=== PATIENT | female | born 1990 | race American Indian/Alaskan Native ===

== ENCOUNTER 2018-11-29 14:20 | Emergency (ER) | payer MEDICAID ==
[2018-11-29 14:33] VITALS: RESP 18; TEMP 98.7
[2018-11-29] MEDS ORDERED: Sodium Chloride 0.9% 1,000 ML IV STA (14:57)
[2018-11-29 15:33] LABS: URINE BILIRUBIN NEGATIVE (NEGATIVE); URINE BLOOD TRACE-INTACT (NEGATIVE); URINE GLUCOSE (UA) NEGATIVE (NEGATIVE); URINE LEUKOCYTE ESTERASE NEGATIVE Leu/uL (NEGATIVE); URINE PROTEIN NEGATIVE mg/dL (<30 mg/dL); URINE UROBILINOGEN 0.2 E.U./dL (<1 E.U./dL)
[2018-11-29 15:34] LABS: URINE APPEARANCE CLEAR (CLEAR); URINE COLOR YELLOW (YELLOW)
[2018-11-29 15:53] LABS: ALB/GLOB RATIO 1.3 (1.1-1.8); ALBUMIN 4.6 g/dL (3.0-4.8); ALT/SGPT 25 U/L (7-56); AMYLASE 108 U/L (35-125); AST/SGOT 27 U/L (14-36); BLOOD UREA NITROGEN 12 mg/dL (7-21); CALCIUM 9.5 mg/dL (8.4-10.5); GFR NON-AFRICAN AMERICAN > 60; LIPASE 178 U/L (23-300)
[2018-11-29 15:54] LABS: INR 1.09; PARTIAL THROMBOPLASTIN TIME 30.2 Seconds (25.1-36.5); PROTHROMBIN TIME 12.4 SECONDS (9.4-12.5)
[2018-11-29] MEDS ORDERED: Potassium Chloride 20 mEq ER Tab PO STA (15:57)
[2018-11-29 16:00] LABS: BASO # 0.03 K/mm3 (0.0-2.0); BASO % 0.4 % (0.0-3.0); EOS # 0.1 (0.0-0.7); EOS % 1.5 % (1.5-5.0); GRAN # 3.95 (1.4-6.5); GRAN % 58.7 % (50.0-68.0); LYMPH # 2.4 (1.2-3.4); LYMPH % 35.2 % (22.0-35.0); MEAN CELL VOLUME 76.4 fl (80.0-105.0); MEAN CORPUSCULAR HEMOGLOBIN 25.1 pg (25.0-35.0); MEAN CORPUSCULAR HGB CONC 32.8 g/dl (31.0-37.0); MEAN PLATELET VOLUME 9.6 fl (7.0-11.0); MONO # 0.3 (0.1-0.6); MONO % 4.2 % (1.0-6.0); RBC 5.18 10^6/uL (3.5-6.1); RED CELL DISTRIBUTION WIDTH 14.2 % (11.5-14.5); WHITE BLOOD COUNT 6.7 10^3/uL (4.5-11.0)
[2018-11-29] MEDS ORDERED: Iohexol 350 MG/100 ML VIAL ONE (16:06)
[2018-11-29 16:07] LABS: URINE BACTERIA SMALL /hpf; URINE RBC 0 - 2 /hpf (0-2)
--- NOTE | 2018-11-29 16:38 | CT ---
Date of service: 11/29/2018 PROCEDURE: CT Abdomen and Pelvis with contrast HISTORY: RLQ pain COMPARISON: None. TECHNIQUE: Contrast dose: 100 mL Omnipaque 350 Radiation dose: Total exam DLP = 403.59 mGy-cm. This CT exam was performed using one or more of the following dose reduction techniques: Automated exposure control, adjustment of the mA and/or kV according to patient size, and/or use of iterative reconstruction technique. FINDINGS: LOWER THORAX: Unremarkable. LIVER: Unremarkable. No gross lesion or ductal dilatation. GALLBLADDER AND BILE DUCTS: Unremarkable. PANCREAS: Unremarkable. No gross lesion or ductal dilatation. SPLEEN: Unremarkable. ADRENALS: Unremarkable. No mass. KIDNEYS AND URETERS: Unremarkable. No hydronephrosis. No solid mass. VASCULATURE: Unremarkable. No aortic aneurysm. No aortic atherosclerotic calcification or mural plaque present. BOWEL: Unremarkable. No obstruction. No gross mural thickening. APPENDIX: Normal appendix. PERITONEUM: Unremarkable. No free fluid. No free air. LYMPH NODES: Unremarkable. No enlarged lymph nodes. BLADDER: Unremarkable. REPRODUCTIVE: Slightly increased prominence of the right adnexa relative to the left BONES: No acute fracture. OTHER FINDINGS: None. IMPRESSION: No evidence of appendicitis. Slightly increased prominence of the right adnexa relative to the left. Given right lower quadrant pain, pelvic ultrasound can be considered to evaluate for ovarian torsion as clinically needed.
--- NOTE | 2018-11-29 17:58 | ED PDOC ---
Arrival/HPI - General Chief Complaint: GI Problem Time Seen by Provider: 11/29/18 14:35 Historian: Patient - History of Present Illness Narrative History of Present Illness (Text): 11/30/18 00:19 28 year old female with no significant past medical history presents to the emergency department complaining of right sided flank pain x one day. Patient describes gradually worsening intermittent sharp right lower quadrant pain that radiates around the right flank to the back. Tolerating PO and having BM per baseline. States she typically has pain like this with her UTIs. Unknown LMP, patient on DepoProvera shot. Denies fever, chills, urinary symptoms, stool changes, N/V, vaginal bleeding, vaginal discharge, pelvic pain, rash, or any other associated symptoms. Past Medical History - Provider Review Nursing Documentation Reviewed: Yes - Infectious Disease Hx of Infectious Diseases: None - Psychiatric Hx Substance Use: No - Anesthesia Hx Anesthesia: No - Suicidal Assessment Feels Threatened In Home Enviroment: No Family/Social History - Physician Review Nursing Documentation Reviewed: Yes Family/Social History: No Known Family HX Smoking Status: Never Smoked Hx Alcohol Use: No Hx Substance Use: No Allergies/Home Meds Allergies/Adverse Reactions: Allergies No Known Allergies Allergy (Verified 11/29/18 14:33) Home Medications: Home Meds Medication Instructions Recorded Confirmed Depo-Provera Contraceptive 1 mg IM Q3M 09/07/15 11/29/18 Review of Systems - Physician Review All systems were reviewed & negative as marked: Yes - Review of Systems Constitutional: Normal. absent: Fevers Eyes: Normal ENT: Normal. absent: Sinus Congestion Respiratory: Normal. absent: SOB, Cough Cardiovascular: Normal. absent: Chest Pain, Palpitations, Syncope Gastrointestinal: Abdominal Pain. absent: Stool Changes, Nausea, Vomiting, Appetite Changes, Hematochezia, Hematemesis Genitourinary Female: Normal. absent: Dysuria, Frequency, Vaginal Bleeding, Vaginal Discharge Musculoskeletal: Back Pain Skin: Normal. absent: Rash Neurological: Normal. absent: Headache, Dizziness, Gait Changes, Disequilibrium Endocrine: Normal Hemo/Lymphatic: Normal Psychiatric: Normal Physical Exam Vital Signs Reviewed: Yes Vital Signs Temp Pulse Resp BP Pulse Ox 11/29/18 14:31 98.7 F 88 18 120/78 98 Temperature: Afebrile Blood Pressure: Normal Pulse: Regular Respiratory Rate: Normal Appearance: Positive for: Well-Appearing, Non-Toxic, Comfortable Pain Distress: None Mental Status: Positive for: Alert and Oriented X 3 - Systems Exam Head: Present: Atraumatic, Normocephalic Pupils: Present: PERRL Extroacular Muscles: Present: EOMI Conjunctiva: Present: Normal Mouth: Present: Moist Mucous Membranes Pharnyx: Present: Normal. No: ERYTHEMA, EXUDATE Nose (External): Present: Atraumatic Nose (Internal): Present: Normal Inspection Neck: Present: Normal Range of Motion. No: Meningeal Signs Respiratory/Chest: Present: Clear to Auscultation, Good Air Exchange. No: Respiratory Distress, Accessory Muscle Use Cardiovascular: Present: Regular Rate and Rhythm, Normal S1, S2, Peripheal Pulses Present. No: Murmurs Abdomen: Present: Tenderness (RLQ), Normal Bowel Sounds. No: Distention, Germaine toneal Signs, Rebound, Guarding Genitourinary/Pelvic Exam: Present: Normal External Genitalia, Vaginal Discharge (thick white curd-like discharge suspicious of candidal vaginitis), Cervical os Closed. No: Vaginal Bleeding, Vaginal Lesions, Adenexal Tenderness, Adenexal Mass, Cervical Motion Tendernes, Odor Back: Present: Normal Inspection. No: CVA Tenderness Upper Extremity: Present: Normal Inspection, Normal ROM, NORMAL PULSES, Neurovascularly Intact, Capillary Refill < 2s. No: Cyanosis, Edema Lower Extremity: Present: Normal Inspection, NORMAL PULSES, Normal ROM, Neurovascularly Intact, Capillary Refill < 2 s. No: Edema Neurological: Present: GCS=15, CN II-XII Intact, Speech Normal, Motor Func Grossly Intact, Normal Sensory Function, Gait Normal Skin: Present: Warm, Dry, Normal Color. No: Rashes Lymphatic: No: Cervical Adenopathy Psychiatric: Present: Alert, Oriented x 3, Normal Insight, Normal Concentration, Normal Affect, Normal Mood Medical Decision Making ED Course and Treatment: Initial Plan: * CBC, CMP * Lipase, Amylase * Coags * UA, culture * CT Abd/Pelvis Labwork significant for mild hypokalemia at 3.5, will give 20mEq KCl. Otherwise unremarkable UA with trace blood 16:50 CT Abd/Pelvis shows prominent right ovary, recommends transvaginal ultrasound. Will get transvaginal ultrasound to rule out ovarian torsion. 18:00 Transvaginal ultrasound negative for ovarian torsion. Patient still with mild abdominal discomfort. Pelvic exam revealed discharge suspicious for candidal infection, will give Diflucan. Will treat for UTI with Keflex secondary to patient's typical symptoms and trace blood in urine. Diagnostic testing results and plan of care discussed with patient, and strict instructions given regarding prescriptions, importance of follow up, and signs to return to Emergency Department, to include worsening abdominal pain, N/V, fever, chills, or any other new/worsening symptoms. Patient verbalizes understanding of discussion. Patient A&Ox3, ambulating with steady gait, stable for discharge home. - Lab Interpretations Lab Results: 11/29/18 15:05 11/29/18 15:05 Lab Results 11/29/18 15:19: Urine Color Yellow, Urine Appearance Clear, Urine pH 6.0, Ur Specific [place] >= 1.030, Urine Protein Negative, Urine Glucose (UA) Negative, Urine Ketones Negative, Urine Blood Trace-intact H, Urine Nitrate Negative, Urine Bilirubin Negative, Urine Urobilinogen 0.2, Ur Leukocyte Esterase Negative, Urine RBC 0 - 2, Urine WBC 1 - 3, Ur Epithelial Cells 3 - 4, Urine Bacteria Small 11/29/18 15:05: Sodium 143, Potassium 3.4 L, Chloride 109 H, Carbon Dioxide 25, Anion Gap 12, BUN 12, Creatinine 0.8, Est GFR ( Amer) > 60, Est GFR (Non- Af Amer) > 60, Random Glucose 92, Calcium 9.5, Total Bilirubin 0.8, AST 27, ALT 25, Alkaline Phosphatase 79, Total Protein 8.1, Albumin 4.6, Globulin 3.6, Albumin/Globulin Ratio 1.3, Amylase 108, Lipase 178 11/29/18 15:05: PT 12.4, INR 1.09, APTT 30.2 11/29/18 15:05: WBC 6.7, RBC 5.18, Hgb 13.0, Hct 39.6, MCV 76.4 L, MCH 25.1, MCHC 32.8, RDW 14.2, Plt Count 258, MPV 9.6, Gran % 58.7, Lymph % (Auto) 35.2 H, [place] % (Auto) 4.2, Eos % (Auto) 1.5, Baso % (Auto) 0.4, Gran # 3.95, Lymph # (Auto) 2.4, [place]son # (Auto) 0.3, Eos # (Auto) 0.1, Baso # (Auto) 0.03 I have reviewed the lab results: Yes Interpretation: All labs normal - RAD Interpretation Narrative RAD Interpretations (Text): CT Abd/Pelvis with IV contrast: FINDINGS: LOWER THORAX: Unremarkable. LIVER: Unremarkable. No gross lesion or ductal dilatation. GALLBLADDER AND BILE DUCTS: Unremarkable. PANCREAS: Unremarkable. No gross lesion or ductal dilatation. SPLEEN: Unremarkable. ADRENALS: Unremarkable. No mass. KIDNEYS AND URETERS: Unremarkable. No hydronephrosis. No solid mass. VASCULATURE: Unremarkable. No aortic aneurysm. No aortic atherosclerotic calcification or mural plaque present. BOWEL: Unremarkable. No obstruction. No gross mural thickening. APPENDIX: Normal appendix. PERITONEUM: Unremarkable. No free fluid. No free air. LYMPH NODES: Unremarkable. No enlarged lymph nodes. BLADDER: Unremarkable. REPRODUCTIVE: Slightly increased prominence of the right adnexa relative to the left BONES: No acute fracture. OTHER FINDINGS: None. IMPRESSION: No evidence of appendicitis. Slightly increased prominence of the right adnexa relative to the left. Given right lower quadrant pain, pelvic ultrasound can be considered to evaluate for ovarian torsion as clinically needed. 11/29/18 17:55 Transvaginal Ultrasound: FINDINGS: UTERUS: Measures 7.9 x 5.7 x 3.7 cm. Retroflexed, normal in size and appearance. No fibroid or other mass lesion seen. ENDOMETRIUM: Measures 11 mm in diameter. Unremarkable. CERVIX: No cervical abnormality identified. RIGHT OVARY: Measures 3.8 x 1.7 x 3.3 cm. No solid mass. Normal flow. LEFT OVARY: Measures 3.2 x 2.7 x 3.3 cm. No solid mass. Normal flow. FREE FLUID: There is a small amount of free fluid in the cul de sac, likely physiologic. OTHER FINDINGS: None. IMPRESSION: Unremarkable pelvic ultrasound. No evidence of ovarian cyst or adnexal mass. No evidence for torsion. Radiology Orders: 11/29/18 15:00 ABD & PELVIS IV CONTRAST ONLY [CT] Stat 11/29/18 16:53 TRANSVAGINAL [US] Stat Tank Truck Loader: Radiologist - Medication Orders Current Medication Orders: Discontinued Medications Famotidine (Pepcid) 20 mg IVP STAT STA Stop: 11/29/18 14:55 Last Admin: 11/29/18 15:39 Dose: 20 mg IVP Administration Document 11/29/18 15:39 Katja (Rec: 11/29/18 15:39 [id number] Charges for Administration # of IVP Administrations 1 Sodium Chloride (Sodium Chloride 0.9%) 1,000 mls @ 999 mls/hr IV .Q1H1M STA Stop: 11/29/18 15:57 Last Admin: 11/29/18 15:20 Dose: 999 mls/hr eMAR Start Stop Document 11/29/18 15:20 Katja (Rec: 11/29/18 15:38 [id number] Intravenous Solution Start Date 11/29/18 Start Time 15:20 End Date 11/29/18 End time 16:20 Total Infusion Time 60 Ketorolac Tromethamine (Toradol) 30 mg IVP STAT STA Stop: 11/29/18 14:55 Last Admin: 11/29/18 15:38 Dose: 30 mg MAR Pain Assessment Document 11/29/18 15:38 Katja (Rec: 11/29/18 15:38 [id number] Pain Reassessment Is this a pain reassessment? No Sleep Is patient sleeping during reassessment? No Presence of Pain Presence of Pain Yes IVP Administration Document 11/29/18 15:38 AMINAH (Rec: 11/29/18 15:38 [id number]) Charges for Administration # of IVP Administrations 1 Potassium Chloride (K-Dur 20 Meq Er Tab) 20 meq PO STAT STA Stop: 11/29/18 15:58 Last Admin: 11/29/18 16:36 Dose: 20 meq Disposition/Present on Arrival - Present on Arrival Any Indicators Present on Arrival: No History of DVT/PE: No History of Uncontrolled Diabetes: No Urinary Catheter: No History of Decub. Ulcer: No History Surgical Site Infection Following: None - Disposition Have Diagnosis and Disposition been Completed?: Yes Diagnosis: Abdominal pain, Vaginal candidiasis Disposition: HOME/ ROUTINE Disposition Time: 18:25 Condition: IMPROVED Discharge Instructions (ExitCare): Acute Abdomen (Belly Pain), Adult (DC), Flank Pain (DC) Additional Instructions: Increase fluids Ibuprofen/tylenol for pain Keflex every 12 hours for 7 days Followup with blindstitch machine operator within 2 days Followup with primary doctor within 2 days Return to ER with any new/worsening symptoms Prescriptions: Cephalexin [Keflex] 500 mg PO Q12H 7 Days #14 capsule Referrals: Jose Weiss MD [Primary Care Provider] - Follow up with primary Suleman Mensah [Medical Doctor] - Follow up with primary Forms: [email or web address] (Danish), WORK NOTE
[2018-11-29 18:11] VITALS: BP 118/72; PULSE 77; O2SAT 99
== END 2018-11-29 18:49 | disposition home or self-care (01) ==
LOC: ED 14:20
DX: B37.3 Candidiasis of vulva and vagina (principal); R10.31 Right lower quadrant pain
CPT/HCPCS: 74177; 76830; 80053; 81001; 82150; 83690; 85025; 85610; 85730; 87086; 96361; 96374; 96375; 99283; J1885; J7030; Q9967